=== PATIENT | male | born 2000 | race Caucasian/White ===

== ENCOUNTER 2018-08-25 11:43 | Emergency (ER) | payer SELFPAY ==
[2018-08-25] MEDS ORDERED: Adacel (T-DAP) 0.5 ML SYRINGE ONE (12:07)
[2018-08-25] MEDS ORDERED: Lidocaine 1% w/Epinephrine 1:100K 20 ML VIAL ONE (12:39)
[2018-08-25] MEDS ORDERED: Bisacodyl 10 MG SUPP ONE (14:36)
== END 2018-08-25 13:23 | disposition home or self-care (01) ==
LOC: ERS 11:43
DX: S56.921A Laceration of unspecified muscles, fascia and tendons at forearm level, right arm, initial encounter (principal); W22.8XXA Striking against or struck by other objects, initial encounter
CPT/HCPCS: 12002; 90471; 90715; J2001